=== PATIENT | male | born 1985 | race Caucasian/White ===

== ENCOUNTER 2017-05-13 04:58 | Emergency (ER) | payer SELFPAY ==
[~2017-05-13] VITALS: Ht 175.3 cm; Wt 100.0 kg
[2017-05-13 04:50] VITALS: O2SAT 97
[2017-05-13] MEDS ORDERED: IOHEXOL 350 MG/ML 10 ML VIAL (for RAD DIAG) IV ONE (05:13)
[2017-05-13 05:18] LABS: AUTOMATED NEUTROPHIL # 4.5 TH/MM3 (1.8-7.7); BASOPHIL # 0.1 TH/MM3 (0-0.2); BASOPHIL % 0.7 % (0.0-2.0); EOSINOPHIL # 1.1 TH/MM3 (0-0.4); HEMATOCRIT 42.7 % (39.0-51.0); HEMO FLAGS DIFF FINAL; LYMPH % 24.1 % (9.0-44.0); LYMPHOCYTE # 2.1 TH/MM3 (1.0-4.8); MEAN CELL VOLUME 85.9 FL (80.0-100.0); MEAN CORPUSCULAR HEMOGLOBIN 29.6 PG (27.0-34.0); MEAN CORPUSCULAR HGB CONC 34.4 % (32.0-36.0); MONO % 9.7 % (0.0-8.0); NEUT % 52.5 % (16.0-70.0); PLATELET COUNT 252 TH/MM3 (150-450); RED BLOOD COUNT 4.97 MIL/MM3 (4.50-5.90); RED CELL DISTRIBUTION WIDTH 13.6 % (11.6-17.2); WHITE BLOOD COUNT 8.7 TH/MM3 (4.0-11.0)
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
[2017-05-13 05:29] LABS: APTT (PATIENT) 28.1 SEC (24.3-30.1); I-STAT POTASSIUM 3.6 MMOL/L (3.5-4.9); PROTHROMBIN TIME - PATIENT 10.7 SEC (9.8-11.6)
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
[2017-05-13 05:36] VITALS: O2SAT 100
[2017-05-13 05:37] VITALS: BP 151/84; PULSE 107; RESP 18; TEMP 98.1; O2SAT 100
[2017-05-13] MEDS ORDERED: CEPH-460 PO (05:38)
[2017-05-13 06:35] VITALS: BP 145/75; PULSE 103; RESP 18; O2SAT 98
[2017-05-13 07:52] VITALS: BP 142/78
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
== END 2017-05-13 07:53 ==
LOC: EDBD 04:58 → NEPI 04:58 → NEPE 07:53
DX: S31.109A Unspecified open wound of abdominal wall, unspecified quadrant without penetration into peritoneal cavity, initial encounter (principal); X93.XXXA Assault by handgun discharge, initial encounter
CPT/HCPCS: 71010; 72170; 74177; 82435; 82565; 82947; 84132; 84295; 84520; 85025; 85610; 85730; 86850; 86900; 86901; Q9967; 90471; 96374